=== PATIENT | male | born 1990 | race Caucasian/White ===

== ENCOUNTER 2020-11-15 14:30 | Emergency (ER) | payer OTHER ==
[2020-11-15 14:53] VITALS: TEMP 97.6
[2020-11-15] MEDS ORDERED: DEXAMETHASONE SOD PHOSPHATE 10 MG/ML 1 ML VIAL IM STA (15:14)
--- NOTE | 2020-11-15 15:19 | ED ---
General Adult HPI - General Chief complaint: Allergic Reaction Stated complaint: Allergic Reaction to bee sting Time Seen by Provider: 11/15/20 15:04 Source: patient, RN notes reviewed Mode of arrival: ambulatory Limitations: no limitations - History of Present Illness Initial comments: 30-year-old white male, alert and oriented 4, presents to the emergency room complaints of being stung by a hornet on his right lower leg about 145 this afternoon. Patient states that it immediately swelled and then he developed a rash about half an hour after to his abdomen and bilateral arms. He states that he was only stung one time. He states he was stung multiple times a year ago and developed facial swelling the next day, he was treated at an urgent care with steroids and Benadryl at that time. Patient states he does not have an EpiPen. Patient states that he did have some nausea today and throat itching which has resolved after taking the Benadryl. He has no respiratory distress at this time oxygen saturation is 95% on room air patient is well-appearing. -: hour(s) (1) Location: right, lower extremity Radiation: non-radiation Severity scale (1-10): 2 Quality: burning Consistency: constant Improves with: medication (Gen.) Worsens with: none Associated Symptoms: nausea/vomiting, rash (Generalized hives) Treatments Prior to Arrival: other (50 mg of Benadryl) - Related Data Previous Rx's Medication Instructions Recorded EPINEPHrine (Auto Inject) [Epipen] 0.3 mg IM ONCE PRN #2 each 11/15/20 Allergies Allergy/AdvReac Type Severity Reaction Status Date / Time No Known Allergies Allergy Verified 11/15/20 14:50 Review of Systems ROS Statement: Those systems with pertinent positive or pertinent negative responses have been documented in the HPI. ROS Other: All systems not noted in ROS Statement are negative. Past Medical History Past Medical History: No Reported History History of Any Multi-Drug Resistant Organisms: None Reported Past Surgical History: No Surgical Hx Reported Past Psychological History: No Psychological Hx Reported Smoking Status: Current every day smoker Past Alcohol Use History: Occasional Past Drug Use History: None Reported General Exam Limitations: no limitations General appearance: alert, in no apparent distress Head exam: Present: atraumatic, normocephalic, normal inspection Eye exam: Present: normal appearance, PERRL, EOMI. Absent: scleral icterus, conjunctival injection, periorbital swelling ENT exam: Present: normal exam, normal oropharynx, mucous membranes moist Neck exam: Present: normal inspection, full ROM. Absent: tenderness, meni ngismus, lymphadenopathy Respiratory exam: Present: normal lung sounds bilaterally. Absent: respiratory distress, wheezes, rales, rhonchi, stridor Cardiovascular Exam: Present: regular rate, normal rhythm, normal heart sounds. Absent: systolic murmur, diastolic murmur, rubs, gallop, clicks GI/Abdominal exam: Present: soft, normal bowel sounds. Absent: distended, tenderness, guarding, rebound, rigid Extremities exam: Present: normal inspection, full ROM, normal capillary refill. Absent: tenderness, pedal edema, joint swelling, calf tenderness Back exam: Present: full ROM. Absent: tenderness, CVA tenderness (R), CVA tenderness (L), muscle spasm, paraspinal tenderness, vertebral tenderness Neurological exam: Present: alert, oriented X3, CN II-XII intact Psychiatric exam: Present: normal affect, normal mood Skin exam: Present: warm, dry, intact, urticaria (Bilateral arms with hives and right posterior calf erythema from bee sting ). Absent: rash Course Vital Signs 11/15/20 14:51 Temperature 97.6 F Pulse Rate 76 Respiratory 20 Rate Blood Pressure 130/78 O2 Sat by Pulse 95 Oximetry Medical Decision Making - Medical Decision Making This is a well-appearing gentleman at 50 mg of Benadryl approximately 45 minutes prior to arrival to the emergency room. He states that his symptoms have significantly improved and his hives have diminished. He does not have any difficulty breathing or throat irritation at this time. His oxygen level was 95%. He was given steroids in the emergency room he will be prescribed an EpiPen for any subsequent bee stings that may cause difficulty in breathing. Instructed to return to the emergency room with any new or worsening symptoms complaint difficulty in breathing, nausea vomiting or chest pain. To continue Benadryl [id number] every 6-8 hours for hives and itching. Disposition Clinical Impression: Allergic reaction to insect sting Disposition: HOME SELF-CARE Condition: Good Instructions (If sedation given, give patient instructions): Insect Bite or Sting (ED) Additional Instructions: Return to the emergency room for any new or worsening symptoms including shortn ess of breath or throat swelling. Use the EpiPen as needed for any difficulty in breathing and then follow up in the emergency room. Continue Benadryl as directed [id number] for hives. Prescriptions: EPINEPHrine (Auto Inject) [Epipen] 0.3 mg IM ONCE PRN #2 each PRN Reason: Anaphylaxis Is patient prescribed a controlled substance at d/c from ED?: No Referrals: None,Stated [Primary Care Provider] - 1-2 days Time of Disposition: 15:23
[2020-11-15 16:02] VITALS: BP 118/73; PULSE 58; RESP 16
== END 2020-11-15 16:04 | disposition home or self-care (01) ==
LOC: EC 14:30
DX: T63.441A Toxic effect of venom of bees, accidental (unintentional), initial encounter (principal)
CPT/HCPCS: 99283; 96372; J1100

== ENCOUNTER → 2021-10-17 | Outpatient (CLI) | payer OTHER ==
--- NOTE | 2021-10-17 13:38 | P.SLEEP ---
History of Present Illness DATE: 10/17/2021 CONSULTATION/NEW PATIENT EVALUATION HISTORY OF PRESENT ILLNESS/SLEEP-WAKE EVALUATION: 31 year old gentleman had been evaluated in the sleep center for possible obstructive sleep apnea hypopnea syndrome. SLEEP SCHEDULE: Usually sleep schedule 7 days a week from midnight1 AM until 7- 8 AM. FALLING ASLEEP: Usually no problems with falling asleep, although patient has TV set and bedroom]. DURING SLEEP:Patient sleeps in different positions of his loud snoring and witnessed episodes of sleep apneas. ] No history of hypnogogical hallucinations, sleep paralysis, or cataplexy. DURING THE DAY/WAKE STATE: Usually patient doesn't take any naps]. [place] sleepiness scale is 4. PAST MEDICAL HISTORY: Anxiety]. PAST SURGICAL HISTORY: Adenoidectomy]. MEDICATIONS: None]. SOCIAL HISTORY: Ex smoker, history of smoking for 14 years about three fourths pack per day, alcohol consumption occasional. FAMILY HISTORY:Cancer, sleep apnea]. REVIEW OF SYSTEMS:Loud snoring, witnessed episodes of sleep apneas]. No fevers. No double vision. No recent chest pain. No shortness of breath. No abdominal pain. No bleeding episodes. No blood in urine. No seizure episodes. PHYSICAL EXAMINATION: GENERAL: A pleasant patient without any distress. VITAL SIGNS: B 131/80] , HR65] , R 16] , weigh 237] pounds, heigh 5 ]sharona 9-1/2 ]inches, body mass inde 34.4] . HEENT: PERRLA, EOMI. Evaluation of oropharynx showed tongue protrudes midline, low position of soft palate Mallampat 3, wide uvula]. NECK: Supple. No JVD. Thyroid is not palpable. 17] inches in circumference. LUNGS: Clear to percussion and to auscultation. Good air exchange. No wheezing or rhonchi. HEART: S1, S2 regular. No murmurs, gallops or rubs. ABDOMEN: Soft and nontender. Bowel sounds are present. No organomegaly appreciated. EXTREMITIES: No clubbing or cyanosis. LOCKSTITCH TOPSTITCHER: Awake, alert, and oriented x3. Cranial nerves 2 to 7 intact. There is no fasciculation or atrophy noted. No focal deficits observed. ASSESSMENT: 1. Loud snoring, witnessed episodes of sleep apnea, small oropharyngeal air space, wide neck 17 inches in circumference. Obstructive sleep apnea hypopnea syndrome]. 2. Obesity body mass index 34.4]. 3 history of anxiety]. 4. Status post adenoidectomy]. PLAN: 1. Home sleep apnea test 2. CPAP/BiPAP titration if sleep study confirms obstructive sleep apnea- hypopnea syndrome. 3. Preferable position during sleep on the side. 4. No driving if patient feels any sleepiness. Patient is aware of civil and criminal liability for unsafe driving. 5. Sleep hygiene with regular sleep time for at least 7.5-8 hours. 6. Watching weight. Thank you very much for referring this patient for consultation. Sincerely, Geoffrey Fuller MD, PhD, FAASM. Diplomat of [place] [employer], Sleep Medicine Board by [place] [employer] [employer] [facility] [place] Past Medical History Past Medical History: No Reported History History of Any Multi-Drug Resistant Organisms: None Reported Past Surgical History: No Surgical Hx Reported Past Psychological History: No Psychological Hx Reported Smoking Status: Current every day smoker Past Alcohol Use History: Occasional Past Drug Use History: None Reported Medications and Allergies Home Medications Medication Instructions Recorded Confirmed Type EPINEPHrine (Auto Inject) [Epipen] 0.3 mg IM ONCE PRN #2 each 11/15/20 Rx Allergies Allergy/AdvReac Type Severity Reaction Status Date / Time No Known Allergies Allergy Verified 11/15/20 14:50 Sleep Note - Sleep Note Sleep Note: Temperature: Pulse Rate: Respiratory Rate: Blood Pressure: SpO2: Height: Weight: BMI: Neck Circumference:
== END | disposition home or self-care (01) ==
LOC: SLEEP 13:09
PROVIDERS: ATTEND Internal Medicine
DX: G47.33 Obstructive sleep apnea (adult) (pediatric) (principal); E66.9 Obesity, unspecified; Z68.34 Body mass index [BMI] 34.0-34.9, adult; Z90.89 Acquired absence of other organs; Z86.59 Personal history of other mental and behavioral disorders
CPT/HCPCS: 99211

== ENCOUNTER → 2022-07-18 | Outpatient (CLI) | payer OTHER ==
--- NOTE | 2022-07-18 12:20 | P.PN ---
Subjective DATE: 07/18/2022 FOLLOW UP VISIT. Patient with obstructive sleep apnea hypopnea syndrome return to sleep center for follow-up visit. Recently patient had sleep study which documented obstructive sleep apnea hypopnea syndrome. Patient was initiated on PAP therapy and today is first visit after treatment was started. Patient was able to use PAP equipment every night. I explained results of sleep studies to the patient in details. The patient does not have significant problems with the mask, PAP pressure and humidification. [place] sleepiness scale is 2, which is totally normal. I checked information from PAP unit. PAP unit pressure 6-14, average 11.3 cm H2O. Usage is 80% and 53 % for more then 4 hours, average 5 hours per night. Leak is 11.1 l/m, which is in acceptable range. Apnea Hypopnea Index is 3.1, which is normal. MEDICATIONS: None During physical exam: GENERAL: A pleasant patient without any distress. VITAL SIGNS: BP 148/100, HR 70, RR 12, weight to 57.2, temperature 97.5, oxygen saturation at room air 96%. HEENT: PERRLA, EOMI.low position of soft palate, Mallapati Information about patient's goal use day information about patient's UA for last Friday equipment revealed in the office Friday. Think. NECK: Supple. No JVD. LUNGS: Clear to percussion and to auscultation. Good air exchange. No wheezing or rhonchi. HEART: S1, S2 regular. ABDOMEN: Soft and nontender.[] EXTREMITIES: No clubbing or cyanosis. METAL DRESSER: Awake, alert, and oriented x3. No focal deficit. Impressions: 1. Obstructive sleep apnea-hypopnea syndrome. Patient demonstrated borderline compliance with treatment, benefiting from treatment. 2. Mild obesity. 3. History of anxiety. 4. Status post adenoidectomy. Plan: 1. Continue using PAP equipment every night for the whole night. 2. To change air filter at least 1-2 times per month. 3. PAP unit should stay lower then position of the head. 4. Advised patient to remove all remaining water from humidifier canister daily and make it dry after each usage. Refill canister with fresh distilled water before each usage. 5. Sleep hygiene with regular time in bed for at least 8 hours. 6. Precautions related to driving. No driving if feel any sleepiness. 7. I will maintain prescription for PAP supplies including mask, tube, filters. 8. Follow up visit in 6 months or earlier if patient has any problems. 9. Watching weight. Thank you very much for allowing me to participate in the management of your patient. Geoffrey Fuller MD, PhD, FAASM. Diplomat of [place] [employer], Sleep Medicine Board by [place] [employer] Non [employer] Receiving Clerk [facility] [place]
== END ==
LOC: SLEEP 11:36
PROVIDERS: ATTEND Internal Medicine
DX: G47.33 Obstructive sleep apnea (adult) (pediatric) (principal); E66.9 Obesity, unspecified; F41.9 Anxiety disorder, unspecified; Z98.890 Other specified postprocedural states; Z99.89 Dependence on other enabling machines and devices
CPT/HCPCS: 99212

== ENCOUNTER 2024-09-21 00:09 | Emergency (ER) | payer OTHER ==
[2024-09-21 00:13] VITALS: RESP 18
--- NOTE | 2024-09-21 00:48 | ED ---
Animal Bite HPI - General Chief Complaint: Animal Bite Stated Complaint: left hand cat bite Time Seen by Provider: 09/21/24 00:14 Source: patient, RN notes reviewed Mode of arrival: ambulatory Limitations: no limitations - History of Present Illness Initial Comments: 34-year-old male presents emergency department chief complaint of left hand cat bite. Patient states that he was bit by a feral cat. Patient states there is a puncture wound and immediately started swelling. States his last tetanus was approximately 7 years ago. Patient states the cat is not vaccinated. There was a small amount of blood noted. - Related Data Previous Rx's Medication Instructions Recorded EPINEPHrine (Auto Inject) [Epipen] 0.3 mg IM ONCE PRN #2 each 11/15/20 Amoxic-Pot Clav 875-125Mg 1 tab PO Q12HR #20 tab 09/21/24 [Augmentin 875-125] Allergies Allergy/AdvReac Type Severity Reaction Status Date / Time No Known Allergies Allergy Verified 09/21/24 00:13 Review of Systems ROS Statement: Those systems with pertinent positive or pertinent negative responses have been documented in the HPI. ROS Other: All systems not noted in ROS Statement are negative. Past Medical History Past Medical History: No Reported History History of Any Multi-Drug Resistant Organisms: None Reported Past Surgical History: No Surgical Hx Reported Past Psychological History: No Psychological Hx Reported Smoking Status: Current every day smoker Past Alcohol Use History: Occasional Past Drug Use History: None Reported General Exam Limitations: no limitations General appearance: alert, in no apparent distress Head exam: Present: atraumatic, normocephalic, normal inspection Respiratory exam: Present: normal lung sounds bilaterally. Absent: respiratory distress, wheezes, rales, rhonchi, stridor Cardiovascular Exam: Present: regular rate, normal rhythm, normal heart sounds. Absent: systolic murmur, diastolic murmur, rubs, gallop, clicks Extremities exam: Present: other (Left hand there is a small puncture wound noted, mild swelling neurovascular intact full range of motion) Course Vital Signs 09/21/24 00:10 Temperature 98 F Pulse Rate 64 Respiratory 18 Rate Blood Pressure 152/98 O2 Sat by Pulse 97 Oximetry Medical Decision Making - Medical Decision Making Was pt. sent in by a medical professional or institution (, PA, BRAID FOLDER, urgent care, hospital, or care home...) When possible be specific @ -No Did you speak to anyone other than the patient for history (EMS, parent, family, police, friend...)? What history was obtained from this source @ -No Did you review nursing and triage notes (agree or disagree)? Why? @ -I reviewed and agree with nursing and triage notes Were old charts reviewed (outside hosp., previous admission, EMS record, old EKG, old radiological studies, urgent care reports/EKG's, care home records)? Report findings @ -No old charts were reviewed Differential Diagnosis (chest pain, altered mental status, abdominal pain women, abdominal pain men, vaginal bleeding, weakness, fever, dyspnea, syncope, headache, dizziness, GI bleed, back pain, seizure, CVA, palpatations, mental health, musculoskeletal)? @ -Cat bite, cat scratch, puncture, EKG interpreted by me (3pts min.). @ -None X-rays interpreted by me (1pt min.). @ -None done CT interpreted by me (1pt min.). @ -None done U/S interpreted by me (1pt. min.). @ -None done What testing was considered but not performed or refused? (CT, X-rays, U/S, labs)? Why? @ -None What meds were considered but not given or refused? Why? @ -None Did you discuss the management of the patient with other professionals (professionals i.e. , PA, BRAID FOLDER, lab, RT, psych nurse, protective services social worker, paleologist, teacher, hearing officer, manager case)? Give summary @ -No Was smoking cessation discussed for >3mins.? @ -No Was critical care preformed (if so, how long)? @ -No Were there social determinants of health that impacted care today? How? (Homelessness, low income, unemployed, alcoholism, drug addiction, transportation, low edu. Level, literacy, decrease access to med. care, alf, rehab)? @ -No Was there de-escalation of care discussed even if they declined (Discuss DNR or withdrawal of care, Hospice)? DNR status @ -No What co-morbidities impacted this encounter? (DM, HTN, Smoking, COPD, CAD, Cancer, CVA, ARF, Chemo, Hep., AIDS, mental health diagnosis, sleep apnea, morbid obesity)? @ -None Was patient admitted / discharged? Hospital course, mention meds given and route, prescriptions, significant lab abnormalities, going to OR and other pertinent info. @ -Discharge patient's tetanus updated patient was given Augmentin was discharged on oral Augmentin and rabies vaccine was provided. Patient was discharged in stable condition. Undiagnosed new problem with uncertain prognosis? @ -No Drug Therapy requiring intensive monitoring for toxicity (Heparin, Nitro, Insulin, Cardizem)? @ -No Were any procedures done? @ -No Diagnosis/symptom? @ -Cat bite Acute, or Chronic, or Acute on Chronic? @ -Acute Uncomplicated (without systemic symptoms) or Complicated (systemic symptoms)? @ -Complicated Side effects of treatment? @ -No Exacerbation, Progression, or Severe Exacerbation? @ -No Poses a threat to life or bodily function? How? (Chest pain, [place], MD, pneumonia, PE, COPD, DKA, ARF, appy, cholecystitis, CVA, Diverticulitis, Homicidal, Suicida l, threat to staff... and all critical care pts) @ -No Disposition Clinical Impression: Cat bite Disposition: HOME SELF-CARE Condition: Stable Instructions (If sedation given, give patient instructions): Animal Bite (ED) Additional Instructions: Please return to the Emergency Department if symptoms worsen or any other concerns. Prescriptions: Amoxic-Pot Clav 875-125Mg [Augmentin 875-125] 1 tab PO Q12HR #20 tab Is patient prescribed a controlled substance at d/c from ED?: No Referrals: None,Stated [Primary Care Provider] - 1-2 days Time of Disposition: 00:48
[2024-09-21] MEDS: AMOXIC-POT CLAV 875-125MG 1 EACH TAB PO STA (01:08)
[2024-09-21] MEDS: RABIES IMM GLOB 300 UNIT/2 ML VIAL IM ONE (01:09)
[2024-09-21] MEDS: RABIES VACCINE (PCEC) 2.5 UNIT KIT IM ONE (01:21)
[2024-09-21] MEDS: DIPH,PERTUS(ACELL)TETVAC-LF 0.5 ML VIAL IM ONE (01:25)
[2024-09-21 01:44] VITALS: BP 143/108; PULSE 76; TEMP 98.2
== END 2024-09-21 01:53 | disposition home or self-care (01) ==
LOC: EC 00:09
DX: S61.452A Open bite of left hand, initial encounter (principal); F17.200 Nicotine dependence, unspecified, uncomplicated; Z23 Encounter for immunization; W55.01XA Bitten by cat, initial encounter
CPT/HCPCS: 90377; 90471; 90675; 90715; 96372; 99283